=== PATIENT | male | born 1985 | race African-American/Black ===

== ENCOUNTER 2018-11-09 02:22 | Observation (INO) | payer SELFPAY ==
--- NOTE | 2018-11-09 03:43 | ER ---
Nurse's Notes [facility] Name: Camacho Villarreal Age: 33 yrs Sex: Male : 1985 Arrival Date: 11/09/2018 Time: 02:26 Bed 18 Private MD: Diagnosis: Abscess of anal and rectal regions;Obesity, unspecified;Fever of other and unknown origin Presentation: 11/09 02:38 Presenting complaint: Patient states: "I have had this abscess on my right butt for 2 jd3 days now and it is just really hurting and I can't sleep.". Transition of care: patient was not received from another setting of care. Onset of symptoms was November 07, 2018. Risk Assessment: Do you want to hurt yourself or someone else? Patient reports no desire to harm self or others. Initial Sepsis Screen: Does the patient meet any 2 criteria? HR > 90 bpm. No. Patient's initial sepsis screen is negative. Does the patient have a suspected source of infection? No. Patient's initial sepsis screen is negative. Care prior to arrival: None. 02:38 Method Of Arrival: Ambulatory jd3 02:38 Acuity: HAROON 4 jd3 Historical: - Allergies: 02:42 No Known Allergies; jd3 - Home Meds: 02:42 None [Active]; jd3 - PMHx: 02:42 None; jd3 - PSHx: 02:42 right knee; Cholecystectomy; jd3 - Immunization history:: Adult Immunizations up to date. - Social history:: Smoking status: Patient uses tobacco products, smokes one-half pack cigarettes per day. - Ebola Screening: : Patient negative for fever greater than or equal to 101.5 degrees Fahrenheit, and additional compatible Ebola Virus Disease symptoms. - Family history:: not pertinent. Screenin:43 Abuse screen: Denies threats or abuse. Nutritional screening: No deficits noted. jd3 Tuberculosis screening: No symptoms or risk factors identified. Fall Risk Ambulatory Aid- None/Bed Rest/Nurse Assist (0 pts). Gait- Normal/Bed Rest/Wheelchair (0 pts) Mental Status- Oriented to own ability (0 pts). Total Valero Fall Scale indicates No Risk (0-24 pts). Assessment: 02:44 General: Appears in no apparent distress. uncomfortable, Behavior is calm, cooperative, jd3 appropriate for age. Pain: Complains of pain in right gluteus toño Quality of pain is described as sharp, tender, Aggravated by repositioning. Neuro: Level of Consciousness is awake, alert, obeys commands, Oriented to person, place, time, situation. Cardiovascular: Capillary refill < 3 seconds Patient's skin is warm and dry. Respiratory: Airway is patent Respiratory effort is even, unlabored, Respiratory pattern is regular, symmetrical. GI: No signs and/or symptoms were reported involving the gastrointestinal system. : No signs and/or symptoms were reported regarding the genitourinary system. EENT: No signs and/or symptoms were reported regarding the EENT system. Derm: Skin is intact, Skin is dry, Skin is normal, Skin temperature is warm Reports abscess on right gluteus. Musculoskeletal: Circulation, motion, and sensation intact. Range of motion: intact in all extremities. 04:09 Reassessment: Patient appears in no apparent distress at this time. Patient and/or jd3 family updated on plan of care and expected duration. Pain level reassessed. Patient is alert, oriented x 3, equal unlabored respirations, skin warm/dry/pink. 05:41 Reassessment: Patient appears in no apparent distress at this time. Patient and/or jd3 family updated on plan of care and expected duration. Pain level reassessed. Patient is alert, oriented x 3, equal unlabored respirations, skin warm/dry/pink. Vital Signs: 02:42 BP 148 / 97; Pulse 92; Resp 17 S; Temp 99.3(O); Pulse Ox 98% on R/A; Weight 122.47 kg j (R); Height 6 ft. 2 in. (187.96 cm) (R); Pain 10/10; 04:09 BP 127 / 79; Pulse 81; Resp 18 S; Pulse Ox 100% on R/A; jd3 05:42 BP 119 / 94; Pulse 73; Resp 19 S; Pulse Ox 99% on R/A; jd3 02:42 Body Mass Index 34.67 (122.47 kg, 187.96 cm) jd3 ED Course: 02:26 Patient arrived in ED. es 02:38 Sandeep Tapia, RN is Primary Nurse. jd3 02:42 Triage completed. jd3 02:43 Arm band placed on. jd3 02:44 Patient has correct armband on for positive identification. Bed in low position. Call jd3 light in reach. Side rails up X 1. 02:56 Guillermo Fischer MD is Attending Physician. [place] 03:41 Ramiro Hernandez MD is Hospitalizing Provider. [place] 03:45 Inserted saline lock: 20 gauge in right antecubital area, using aseptic technique. jd3 Blood collected. 03:51 X-ray completed. Portable x-ray completed in exam room. Patient tolerated procedure kw well. 05:42 No provider procedures requiring assistance completed. Patient admitted, IV remains in jd3 place. Administered Medications: 04:05 Drug: NS 0.9% 1000 ml Route: IV; Rate: 1 bolus; Site: right antecubital; jd3 05:43 Follow up: IV Status: Completed infusion jd3 04:05 Drug: NS 0.9% 1000 ml Route: IV; Rate: 125 ml/hr; Site: right antecubital; jd3 05:43 Follow up: Response: No adverse reaction; IV Status: Infusion continued upon admission jd3 04:05 Drug: Zofran 4 mg Route: IVP; Site: right antecubital; jd3 05:44 Follow up: Response: No adverse reaction jd3 04:06 Drug: Flagyl 500 mg Volume: 100 ml; Route: IVPB; Rate: 200 ml/hr; Infused Over: 30 jd3 mins; Site: right antecubital; 04:30 Follow up: Response: No adverse reaction; IV Status: Completed infusion; IV Intake: rr5 100ml 04:06 Drug: morphine 4 mg Route: IVP; Site: right antecubital; jd3 05:44 Follow up: Response: No adverse reaction jd3 04:30 Drug: levofloxacin 750 mg Volume: 150 ml; Route: IVPB; Infused Over: 90 mins; Site: rr5 right antecubital; 05:44 Follow up: Response: No adverse reaction; IV Status: Infusion continued upon admission jd3 Intake: 04:30 IV: 100ml; Total: 100ml. rr5 Outcome: 03:42 Decision to Hospitalize by Provider. [place] 05:42 Admitted to Med/surg accompanied by abdulaziz, via wheelchair, room 212, with chart, Report jd3 called to Genoveva BERMUDEZ 05:42 Condition: stable 05:42 Instructed on the need for admit, Demonstrated understanding of instructions. 05:52 Patient left the ED. jd3 Signatures: Guillermo Fischer MD MD cha Salyer, Edna es Whitley, Kimberlee kw Davies, Jonathon, RN RN jd3 Caleb Zabala RN RN rr5 Corrections: (The following items were deleted from the chart) 04:10 04:09 BP 127 / 79; Pulse 81bpm; Resp 1bpm; Spontaneous; Pulse Ox 100% RA; jd3 jd3
--- NOTE | 2018-11-09 03:43 | EDPHYS ---
Physician Documentation [facility] Name: Camacho Villarreal Age: 33 yrs Sex: Male : 1985 Arrival Date: 11/09/2018 Time: 02:26 Bed 18 Private MD: ED Physician Guillermo Fischer HPI: 11/09 03:37 This 33 yrs old Black Male presents to ER via Ambulatory with complaints of Abscess. [place] 03:37 The patient presents with an abscess of the gluteal cleft, the patient presents with a [place] swollen area of the right gluteus toño. Description: The affected area is moderate sized, confluent, erythematous, fluctuant, raised, swollen. Onset: The symptoms/episode began/occurred 3 day(s) ago. Possible cause(s): unknown. Associated signs and symptoms: Pertinent positives: fever. Modifying factors: the symptoms are alleviated by remaining still, warm soaks, sitz bath, the symptoms are aggravated by movement, walking, pressure, squeezing the lesion and expressing the contents. Severity of symptoms: At their worst the symptoms were moderate, in the emergency department the symptoms are unchanged. The patient has not experienced similar symptoms in the past. Historical: - Allergies: 02:42 No Known Allergies; jd3 - Home Meds: 02:42 None [Active]; jd3 - PMHx: 02:42 None; jd3 - PSHx: 02:42 right knee; Cholecystectomy; jd3 - Immunization history:: Adult Immunizations up to date. - Social history:: Smoking status: Patient uses tobacco products, smokes one-half pack cigarettes per day. - Ebola Screening: : Patient negative for fever greater than or equal to 101.5 degrees Fahrenheit, and additional compatible Ebola Virus Disease symptoms. - Family history:: not pertinent. ROS: 03:37 Eyes: Negative for injury, pain, redness, and discharge, ENT: Negative for injury, [place] pain, and discharge, Neck: Negative for injury, pain, and swelling, Cardiovascular: Negative for chest pain, palpitations, and edema, Respiratory: Negative for shortness of breath, cough, wheezing, and pleuritic chest pain, Abdomen/GI: Negative for abdominal pain, nausea, vomiting, diarrhea, and constipation, Back: Negative for injury and pain, : Negative for injury, bleeding, discharge, and swelling, MS/Extremity: Negative for injury and deformity, Neuro: Negative for headache, weakness, numbness, tingling, and seizure, Psych: Negative for depression, anxiety, suicide ideation, homicidal ideation, and hallucinations, Allergy/Immunology: Negative for hives, rash, and allergies, Endocrine: Negative for neck swelling, polydipsia, polyuria, polyphagia, and marked weight changes, Hematologic/Lymphatic: Negative for swollen nodes, abnormal bleeding, and unusual bruising. 03:37 Constitutional: Positive for body aches, chills, fever. 03:37 Abdomen/GI: Positive for rectal pain. Exam: 03:37 Constitutional: This is a well developed, well nourished patient who is awake, alert, [place] and in no acute distress. Head/Face: Normocephalic, atraumatic. Eyes: Pupils equal round and reactive to light, extra-ocular motions intact. Lids and lashes normal. Conjunctiva and sclera are non-icteric and not injected. Cornea within normal limits. Periorbital areas with no swelling, redness, or edema. ENT: Nares patent. No nasal discharge, no septal abnormalities noted. Tympanic membranes are normal and external auditory canals are clear. Oropharynx with no redness, swelling, or masses, exudates, or evidence of obstruction, uvula midline. Mucous membranes moist. Neck: Trachea midline, no thyromegaly or masses palpated, and no cervical lymphadenopathy. Supple, full range of motion without nuchal rigidity, or vertebral point tenderness. No Meningismus. Chest/axilla: Normal chest wall appearance and motion. Nontender with no deformity. No lesions are appreciated. Cardiovascular: Regular rate and rhythm with a normal S1 and S2. No gallops, murmurs, or rubs. Normal PMI, no JVD. No pulse deficits. Respiratory: Lungs have equal breath sounds bilaterally, clear to auscultation and percussion. No rales, rhonchi or wheezes noted. No increased work of breathing, no retractions or nasal flaring. Abdomen/GI: Soft, non-tender, with normal bowel sounds. No distension or tympany. No guarding or rebound. No evidence of tenderness throughout. Back: No spinal tenderness. No costovertebral tenderness. Full range of motion. Male : Normal genitalia with no discharge or lesions. MS/ Extremity: Pulses equal, no cyanosis. Neurovascular intact. Full, normal range of motion. Neuro: Awake and alert, GCS 15, oriented to person, place, time, and situation. Cranial nerves II-XII grossly intact. Motor strength 5/5 in all extremities. Sensory grossly intact. Cerebellar exam normal. Normal gait. Psych: Awake, alert, with orientation to person, place and time. Behavior, mood, and affect are within normal limits. 03:37 Skin: abscess, that is small, that is moderate sized, of the gluteal cleft, cellulitis, that is mild, induration, that is mild is noted, that is moderate is noted, located on the gluteal cleft. Vital Signs: 02:42 BP 148 / 97; Pulse 92; Resp 17 S; Temp 99.3(O); Pulse Ox 98% on R/A; Weight 122.47 kg jd3 (R); Height 6 ft. 2 in. (187.96 cm) (R); Pain 10/10; 04:09 BP 127 / 79; Pulse 81; Resp 18 S; Pulse Ox 100% on R/A; jd3 05:42 BP 119 / 94; Pulse 73; Resp 19 S; Pulse Ox 99% on R/A; jd3 02:42 Body Mass Index 34.67 (122.47 kg, 187.96 cm) jd3 MDM: 02:[address] [facility] 03:41 Data reviewed: vital signs, nurses notes, lab test result(s), EKG, radiologic studies, [place] plain films. 11/09 03:37 Order name: Basic Metabolic Panel [facility] 11/09 03:37 Order name: CBC with Diff [facility] 11/09 03:37 Order name: LFT's [facility] 11/09 03:37 Order name: Magnesium [facility] 11/09 03:37 Order name: NT PRO-BNP [facility] 11/09 03:37 Order name: PT-INR [facility] 11/09 03:37 Order name: Troponin (emerg Dept Use Only) [facility] 11/09 03:37 Order name: XRAY Chest (1 view) [facility] 11/09 03:37 Order name: EKG; Complete Time: 03:38 [facility] 11/09 03:37 Order name: Cardiac monitoring; Complete Time: 04:04 [facility] 11/09 03:37 Order name: EKG - Nurse/Tech; Complete Time: 04:04 [facility] 11/09 03:37 Order name: IV Saline Lock; Complete Time: 04:04 [facility] 11/09 03:37 Order name: Labs collected and sent; Complete Time: 04:04 [facility] 11/09 03:37 Order name: O2 Per Protocol; Complete Time: 04:05 [facility] 11/09 03:37 Order name: O2 Sat Monitoring; Complete Time: 04:05 [facility] 11/09 03:37 Order name: NPO; Complete Time: 03:39 [place] Administered Medications: 04:05 Drug: NS 0.9% 1000 ml Route: IV; Rate: 1 bolus; Site: right antecubital; jd3 05:43 Follow up: IV Status: Completed infusion jd3 04:05 Drug: NS 0.9% 1000 ml Route: IV; Rate: 125 ml/hr; Site: right antecubital; jd3 05:43 Follow up: Response: No adverse reaction; IV Status: Infusion continued upon admission jd3 04:05 Drug: Zofran 4 mg Route: IVP; Site: right antecubital; jd3 05:44 Follow up: Response: No adverse reaction jd3 04:06 Drug: Flagyl 500 mg Volume: 100 ml; Route: IVPB; Rate: 200 ml/hr; Infused Over: 30 jd3 mins; Site: right antecubital; 04:30 Follow up: Response: No adverse reaction; IV Status: Completed infusion; IV Intake: rr5 100ml 04:06 Drug: morphine 4 mg Route: IVP; Site: right antecubital; jd3 05:44 Follow up: Response: No adverse reaction jd3 04:30 Drug: levofloxacin 750 mg Volume: 150 ml; Route: IVPB; Infused Over: 90 mins; Site: rr5 right antecubital; 05:44 Follow up: Response: No adverse reaction; IV Status: Infusion continued upon admission jd3 Disposition: 11/09/18 03:42 Hospitalization ordered by Ramiro Hernandez for Observation. Preliminary diagnosis are Abscess of anal and rectal regions, Obesity, unspecified, Fever of other and unknown origin. - Bed requested for Telemetry/MedSurg (Inpatient). - Status is Observation. jd3 - Condition is Stable. - Problem is new. - Symptoms have improved. UTI on Admission? No Signatures: Dispatcher [employer] Tata Morgan RN RN mw Anderson, Corey, MD MD cha Davies, Jonathon, RN RN jd3 Caleb Zabala RN RN rr5 Corrections: (The following items were deleted from the chart) 03:50 03:42 Hospitalization Ordered by Ramiro Hernandez MD for Observation. Preliminary mw diagnosis is Abscess of anal and rectal regions; Obesity, unspecified; Fever of other and unknown origin. Bed requested for Telemetry/MedSurg (Inpatient). Status is Observation. Condition is Stable. Problem is new. Symptoms have improved. UTI on Admission? No. [place] 05:52 03:50 11/09/2018 03:42 Hospitalization Ordered by Ramiro Hernandez MD for Observation. jd3 Preliminary diagnosis is Abscess of anal and rectal regions; Obesity, unspecified; Fever of other and unknown origin. Bed requested for Telemetry/MedSurg (Inpatient). Status is Observation. Condition is Stable. Problem is new. Symptoms have improved. UTI on Admission? No. mw
[2018-11-09] MEDS ORDERED: LIDOCAINE 1% W/EPI 1:100,000 MDV 50 ML VIAL ONE (03:45)
[2018-11-09] MEDS ORDERED: Levofloxacin 750mg IV 750 MG/150 ML BAG IV ONE (04:00)
[2018-11-09] MEDS ORDERED: NA CHLORIDE 0.9% 2,000 ML ONE (04:00)
[2018-11-09] MEDS ORDERED: MORPHINE 4 MG/ML SYR ONE (04:00)
[2018-11-09] MEDS ORDERED: METRONIDAZOLE 500mg IVPB 500 MG/100 ML BAG IV ONE (04:00)
[2018-11-09] MEDS ORDERED: ONDANSETRON 4 MG/2 ML VIAL ONE (04:02)
[2018-11-09 04:14] LABS: Absolute Lymphocytes (CBC) 1.7 K/uL (0.7-4.9); Absolute Monocytes 0.5 K/uL (0.1-1.3); Absolute Neutrophil 4.6 K/uL (1.8-8.0); Basophils % 0.6 % (0-1.3); Eosinophils % 4.3 % (0-4.4); Hematocrit 42.5 % (39.6-49.0); Lymphocytes % 23.9 % (15.3-44.8); MPV 9.9 fL (7.6-11.3); Monocytes % 7.5 % (3.3-12.3)
[2018-11-09 04:49] LABS: ALT/SGPT 25 U/L (12-78); AST/SGOT 13 U/L (15-37); Albumin 3.3 g/dL (3.4-5.0); Alkaline Phosphatase 66 U/L (45-117); BUN Blood Urea Nitrogen 15 mg/dL (7-18); Bicarbonate 29 mmol/L (21-32); Bilirubin Direct 0.1 mg/dL (0-0.2); Bilirubin Total 0.3 mg/dL (0.2-1.0); Glucose Level 96 mg/dL (74-106); NT PRO-BNP 7 pg/mL (<125); Potassium 3.7 mmol/L (3.5-5.1); Sodium Level 141 mmol/L (136-145); Troponin (Emerg Dept Use Only) < 0.02 ng/mL (0.0-0.045)
[2018-11-09] MEDS ORDERED: ONDANSETRON 4 MG/2 ML VIAL IV PRN (05:57)
[2018-11-09] MEDS ORDERED: MORPHINE 4 MG/ML SYR IV PRN (05:57)
[2018-11-09] MEDS ORDERED: ACETAMINOPHEN 500 MG TAB PO PRN (05:57)
[2018-11-09] MEDS: NA CHLORIDE 0.9% 1,000 ML IV SCH ×2 (06:47→13:57)
--- NOTE | 2018-11-09 07:34 | EKG ---
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
--- NOTE | 2018-11-09 08:39 | RAD REPORT ---
EXAM DESCRIPTION: [place] Single View11/09/2018 3:52 am CLINICAL HISTORY: Fever COMPARISON: none FINDINGS: The left hemidiaphragm is mildly elevated The lungs appear clear of acute infiltrate. The heart is normal size
[2018-11-09] MEDS ORDERED: METRONIDAZOLE 500mg IVPB 500 MG/100 ML BAG IV SCH (12:00)
--- NOTE | 2018-11-09 12:15 | P.HP ---
Date of Service: 11/09/18 PC: This 33-year-old male presents to the emergent room with severe perirectal pain for diagnosis and treatment. HPC: Patient has had severe perirectal pain for the last 48 hr. Has intensified. Has been running low-grade fevers. PMH: No hypertension no but diabetes PSHx: Denies a prior surgeries SOC: No known allergies SYS REVIEW: States he is otherwise healthy male no cough, wheeze, shortness of breath. No chest pain or palpitations. No change in bowel habit O/E awake, alert, comfortable at the moment just woke up HEENT: Within normal limits Chest: Chest movement equal bilaterally ABD: Soft In the perirectal or L ball has a hard firm indurated area consistent with a developing abscess LOCO: Intact DATA: White cell count normal IMPRESSION: Perirectal abscess PLAN: I will take him the operative room for incision, drainage, sharp debridement of this abscess. The risks of this procedure have been discussed. The possibility of bleeding, infection, need for further surgeries and procedures and development of fistula were outlined. He understands and wants to proceed.
[2018-11-09] MEDS ORDERED: PROPOFOL 200 MG/20 ML VIAL IV ONE (12:34)
[2018-11-09] MEDS ORDERED: FENTANYL CITR 100 MCG/2 ML ONE (12:35)
[2018-11-09] MEDS ORDERED: MIDAZOLAM HCL 2 MG/2 ML INJ ONE (12:35)
[2018-11-09] MEDS ORDERED: LIDOCAINE 2% MPF 5 ML VIAL ONE (12:35)
[2018-11-09] MEDS ORDERED: BUPIVACA 0.25%/EPI 0.0005% MDV 50 ML VIAL ONE (12:53)
--- NOTE | 2018-11-09 13:11 | P.OP ---
Preoperative diagnosis: Alisa rectal abscess Postoperative diagnosis: The same Primary procedure: Incision, drainage, sharp debridement of perirectal abscess Anesthesia: General Estimated blood loss: S than 10 cc Operative Technique: The patient brought the operating room and placed supine on the table. After the induction of adequate general anesthesia, the patient was placed in lithotomy. There the perineum was now prepped with a Betadine solution use draped in usual aseptic manner. 0.25% Marcaine was injected into this area of maximal fluctuance. A skin incision was then made with a 11 surgical blade. This brought down through the skin and subcutaneous tissue. We encounter a large 2.5 cm abscess with foul- smelling material inside. It was drained. Necrotic debris was sharply excised using 11 blade. The loculations were were broken down 2 make it 1 large abscess cavity. A surgical suture, a 2. Nylon, was brought into the wound and out more superiorly. The suture was then tied on itself to leave this open and draining during the postoperative period. At the end of the procedure he was stable when sent to the recovery room. Needle sponge instrument count were correct. The suture was left in place as described. The dressing had been applied. Complications: None Transferred to: Recovery Room Condition: Good
[2018-11-09] MEDS ORDERED: KETOROLAC 30 MG/ML INJ ONE (13:17)
[2018-11-09] MEDS ORDERED: CODEINE 30MG/APAP 300MG TAB PO PRN (13:33)
[2018-11-10] MEDS ORDERED: Levofloxacin 750mg IV 750 MG/150 ML BAG IV SCH (05:00)
== END 2018-11-09 15:09 | disposition home or self-care (01) ==
LOC: ER 02:22 → ERHOLD 03:42 → 2ND 05:44
PROVIDERS: ADMIT Surgery; ATTEND Surgery
PROC: 0D9P7ZX Drainage of Rectum, Via Natural or Artificial Opening, Diagnostic (ICD-10-PCS; principal; 2018-11-09 12:30)
DX: K61.1 Rectal abscess (principal)
CPT/HCPCS: 36415; 71045; 80048; 80076; 83735; 83880; 84484; 85025; 85610; 93005; 96365; 96367; 96375; 99285; G0378; J2250; J2405; J2704; J3010; J7030

== ENCOUNTER 2023-04-25 14:03 | Emergency (ER) | payer SELFPAY ==
[2023-04-25] MEDS ORDERED: KETOROLAC 30 MG/ML INJ ONE (15:02)
[2023-04-25] MEDS ORDERED: NA CHLORIDE 0.9% 2,000 ML ONE (15:02)
--- NOTE | 2023-04-25 15:45 | RAD REPORT ---
EXAM DESCRIPTION: CT - Head Brain Wo Cont - 04/25/2023 3:28 pm CLINICAL HISTORY: Ataxia COMPARISON: none TECHNIQUE: Computed axial tomography of the head was obtained. IV contrast was not requested. All CT scans are performed using dose optimization technique as appropriate and may include automated exposure control or mA/KV adjustment according to patient size. FINDINGS: An intracranial bleed is not seen The ventricles are normal in caliber No significant hypodense areas within the brain visualized No extra-axial fluid collection is noted. Fluid within the sinuses/ mastoids is not seen IMPRESSION: No acute intracranial abnormality is seen If patient's symptoms persist MRI of the brain would be recommended
[2023-04-25 16:54] LABS: Specific Gravity 1.028 (1.005-1.030); Urine Bacteria None Seen /HPF (<20); Urine Bilirubin NEGATIVE (Negative); Urine Blood Negative (Negative); Urine Clarity Clear (Clear); Urine Color Light-Yellow (Yellow); Urine Glucose NEGATIVE (Negative); Urine Mucus Slight /HPF (None Seen); Urine Protein TRACE (Negative); Urine RBC <5 /HPF (None Seen); Urine Urobilinogen 1+ (Normal)
[2023-04-25 17:00] LABS: Barbiturates NEGATIVE (NEGATIVE); Benzodiazepines NEGATIVE (NEGATIVE); Cocaine NEGATIVE (NEGATIVE); METHAMPHETAM NEGATIVE (NEGATIVE); Methadone NEGATIVE (NEGATIVE); Opiates NEGATIVE (NEGATIVE); Phencyclidine NEGATIVE (NEGATIVE); THC Cannibis POSITIVE (NEGATIVE)
--- NOTE | 2023-04-25 17:16 | EDPHYS ---
Physician Documentation [facility] Name: Camacho Villarreal Age: 37 yrs Sex: Male : 1985 Arrival Date: 04/25/2023 Time: 14:03 Bed IW1 Private MD: ED Physician Guillermo Fischer HPI: 04/25 16:46 This 37 yrs old Black Male presents to ER via Ambulatory with complaints of Doesn't snw Feel Right. 16:46 The patient's problem is reported as pt states he "doesn't feel right", states he has snw lapses where common activities feel difficult. A\\T\\O x 3 in ED. Onset: The symptoms/episode began/occurred suddenly, 4 day(s) ago, and became persistent. Context:. Associated signs and symptoms: The patient has no apparent associated signs or symptoms. Severity of symptoms: At their worst the symptoms were mild. Patient's baseline: Neuro: alert and fully oriented, Motor: no deficits, Ambulation: walks without assistance, Speech: normal. The patient has not experienced similar symptoms in the past. The patient has not recently seen a physician, and does not have an established primary care provider. Historical: - Allergies: 15:06 No Known Allergies; iw - Home Meds: 15:06 None [Active]; iw - PMHx: 15:06 None; iw ROS: 16:44 Constitutional: Negative for fever, chills, and weight loss, Eyes: Negative for injury, snw pain, redness, and discharge, ENT: Negative for injury, pain, and discharge, Neck: Negative for injury, pain, and swelling, Cardiovascular: Negative for chest pain, palpitations, and edema, Respiratory: Negative for shortness of breath, cough, wheezing, and pleuritic chest pain, Abdomen/GI: Negative for abdominal pain, nausea, vomiting, diarrhea, and constipation, Back: Negative for injury and pain, : Negative for injury, bleeding, discharge, and swelling, MS/Extremity: Negative for injury and deformity, Skin: Negative for injury, rash, and discoloration, Psych: Negative for depression, anxiety, suicide ideation, homicidal ideation, and hallucinations. 16:44 Neuro: Positive for pt states he feels "off". no changes in lifestyle, travel, medications, family hx of DM and HTN. Exam: 16:44 Constitutional: This is a well developed, well nourished patient who is awake, alert, snw and in no acute distress. Head/Face: Normocephalic, atraumatic. Eyes: Pupils equal round and reactive to light, extra-ocular motions intact. Lids and lashes normal. Conjunctiva and sclera are non-icteric and not injected. Cornea within normal limits. Periorbital areas with no swelling, redness, or edema. ENT: Nares patent. No nasal discharge, no septal abnormalities noted. Tympanic membranes are normal and external auditory canals are clear. Oropharynx with no redness, swelling, or masses, exudates, or evidence of obstruction, uvula midline. Mucous membranes moist. Neck: Trachea midline, no thyromegaly or masses palpated, and no cervical lymphadenopathy. Supple, full range of motion without nuchal rigidity, or vertebral point tenderness. No Meningismus. Chest/axilla: Normal chest wall appearance and motion. Nontender with no deformity. No lesions are appreciated. Cardiovascular: Regular rate and rhythm with a normal S1 and S2. No gallops, murmurs, or rubs. Normal PMI, no JVD. No pulse deficits. Respiratory: Lungs have equal breath sounds bilaterally, clear to auscultation and percussion. No rales, rhonchi or wheezes noted. No increased work of breathing, no retractions or nasal flaring. Abdomen/GI: Soft, non-tender, with normal bowel sounds. No distension or tympany. No guarding or rebound. No evidence of tenderness throughout. Back: No spinal tenderness. No costovertebral tenderness. Full range of motion. Skin: Warm, dry with normal turgor. Normal color with no rashes, no lesions, and no evidence of cellulitis. MS/ Extremity: Pulses equal, no cyanosis. Neurovascular intact. Full, normal range of motion. Neuro: Awake and alert, GCS 15, oriented to person, place, time, and situation. Cranial nerves II-XII grossly intact. Motor strength 5/5 in all extremities. Sensory grossly intact. Cerebellar exam normal. Normal gait. Psych: Awake, alert, with orientation to person, place and time. Behavior, mood, and affect are within normal limits. 17:19 Radiologist reports: negative for acute findings snw Vital Signs: 15:04 Resp 16; Temp 97.3; Pulse Ox 99% on R/A; Pain 0/10; iw 15:06 BP 135 / 82; Pulse 57; Resp 16; Temp 98.3; Pulse Ox 100% on R/A; iw 15:04 Pain Scale: Adult iw Shalonda Coma Score: 17:19 Eye Response: spontaneous(4). Motor Response: obeys commands(6). Verbal Response: snw oriented(5). Total: 15. MDM: 15:49 Patient medically screened. [place] 17:16 Differential diagnosis: stress, confusion, tia, toxic exposure. Data reviewed: vital snw signs, nurses notes, radiologic studies. I considered the following discharge prescriptions or medication management in the emergency department Medications were administered in the Emergency Department. See MAR. Counseling: I had a detailed discussion with the patient and/or guardian regarding: the historical points, exam findings, and any diagnostic results supporting the discharge/admit diagnosis, radiology results, the need for outpatient follow up, to return to the emergency department if symptoms worsen or persist or if there are any questions or concerns that arise at home. Special discussion: Based on the history and exam findings, there is no indication for further emergent testing or inpatient evaluation. I discussed with the patient/guardian the need to see the primary care provider for further evaluation of the symptoms. 04/25 15:36 Order name: Urinalysis w/ reflexes; Complete Time: 16:57 snw 04/25 15:36 Order name: Urine Drug Screen; Complete Time: 17:01 snw 04/25 15:14 Order name: CT Head Brain wo Cont; Complete Time: 15:46 04/25 15:36 Order name: EKG; Complete Time: 15:36 snw 04/25 15:36 Order name: EKG - Nurse/Tech snw 04/25 15:36 Order name: IV Saline Lock w 04/25 15:36 Order name: Labs collected and sent w 04/25 15:36 Order name: Suicide Screening ([place]) snw Administered Medications: No medications were administered Disposition Summary: 04/25/23 17:15 Discharge Ordered Location: Home snw Condition: Stable snw Diagnosis - Confusional arousals snw Followup: snw - With: Emergency Department - When: As needed - Reason: Worsening of condition Followup: snw - With: Private Physician - When: 2 - 3 days - Reason: Recheck today's complaints, Continuance of care, Re-evaluation by your physician Discharge Instructions: - Discharge Summary Sheet snw - Confusion snw - Preventing Marijuana Misuse snw Forms: - Medication Reconciliation Form snw - Thank You Letter snw - Antibiotic Education snw - Prescription Opioid Use snw Signatures: Dispatcher [employer] EDGuillermo Benavidez MD MD cha Waters, Shelly, MAGNETIC RESONANCE IMAGING DIRECTOR-C MAGNETIC RESONANCE IMAGING DIRECTOR-Csnw Hortencia Barfield RN RN iw
--- NOTE | 2023-04-25 17:16 | ER ---
Nurse's Notes [facility] Name: Camacho Villarreal Age: 37 yrs Sex: Male : 1985 Arrival Date: 04/25/2023 Time: 14:03 Bed IW1 Private MD: Diagnosis: Confusional arousals Presentation: 04/25 15:04 Chief complaint: Patient states: has been feeling off balance when he walks X 4 days . iw does not feel dizzy , denies weakness , it happens when he is walking , it feels like he forgot how to walk. Coronavirus screen: At this time, the client does not indicate any symptoms associated with coronavirus-19. Ebola Screen: Patient negative for fever greater than or equal to 101.5 degrees Fahrenheit, and additional compatible Ebola Virus Disease symptoms Patient denies exposure to infectious person. Patient denies travel to an Ebola-affected area in the 21 days before illness onset. No symptoms or risks identified at this time. Initial Sepsis Screen: Does the patient meet any 2 criteria? No. Patient's initial sepsis screen is negative. Does the patient have a suspected source of infection? No. Patient's initial sepsis screen is negative. Risk Assessment: Do you want to hurt yourself or someone else? Patient reports no desire to harm self or others. Onset of symptoms was April 21, 2023. 15:04 Method Of Arrival: Ambulatory iw 15:04 Acuity: HAROON 3 iw Historical: - Allergies: 15:06 No Known Allergies; iw - Home Meds: 15:06 None [Active]; iw - PMHx: 15:06 None; iw Vital Signs: 15:04 Resp 16; Temp 97.3; Pulse Ox 99% on R/A; Pain 0/10; iw 15:06 BP 135 / 82; Pulse 57; Resp 16; Temp 98.3; Pulse Ox 100% on R/A; iw 15:04 Pain Scale: Adult iw Shalonda Coma Score: 17:19 Eye Response: spontaneous(4). Motor Response: obeys commands(6). Verbal Response: snw oriented(5). Total: 15. ED Course: 14:07 Patient arrived in ED. im 14:10 Jolynn Mcnair FNP-C is PHCP. snw 14:10 Guillermo Fischer MD is Attending Physician. snw 15:05 Triage completed. iw 15:29 CT Head Brain wo Cont In Process Unspecified. EDMS 16:45 Urine collected: clean catch specimen, clear. tm3 18:13 Hortencia Barfield, RN is Primary Nurse. iw Administered Medications: No medications were administered Outcome: 17:15 Discharge ordered by . snw 18:13 Patient left the ED. iw Signatures: Dispatcher [employer] EDMS Darren Moraes tm3 Jolynn Mcnair, PIGMENT FURNACE TENDER-C PIGMENT FURNACE TENDER-Csnw Hortencia Barfield, RN RN iw Betty Milian
[2023-04-25 18:20] VITALS: BP 135/82; TEMP 98.3; O2SAT 100
== END 2023-04-25 18:13 | disposition home or self-care (01) ==
LOC: ER 14:03
DX: G47.51 Confusional arousals (principal)
CPT/HCPCS: 70450; 80307; 81001; 99283; J7030